=== PATIENT | male | born 1970 | race Hispanic/Latino ===

== ENCOUNTER 2018-02-03 05:14 | Emergency (ER) | payer OTHER ==
[2018-02-03] MEDS ORDERED: Lidocaine 1% 20 ML MDV ONE (05:40)
[2018-02-03] MEDS ORDERED: Adacel (T-DAP) 0.5 ML VIAL ONE (06:11)
--- NOTE | 2018-02-03 16:27 | RAD ---
LEFT HAND 3 VIEWS: Date: 02/03/18 Views were obtained with particular attention to the fingers. The carpals are largely excluded on thi s study. A soft tissue laceration is seen involving the distal part of the third finger. No opaque foreign bod y or fracture seen. IMPRESSION: Soft tissue injury. POS: HOME
== END 2018-02-03 06:39 | disposition home or self-care (01) ==
LOC: BURERS 05:14
DX: S61.313A Laceration without foreign body of left middle finger with damage to nail, initial encounter (principal); W23.0XXA Caught, crushed, jammed, or pinched between moving objects, initial encounter
CPT/HCPCS: 11760; 90715; J2001

== ENCOUNTER 2020-06-03 10:13 | Outpatient (CLI) | payer OTHER ==
--- NOTE | 2020-06-03 20:02 | RAD ---
RIGHT KNEE FOUR VIEWS: 06/03/20 Osteoarthritis is present consisting of medial joint space narrowing and osteophytes. Patellofemoral osteophytes are present as well. There is a moderate sized joint effusion. No fracture was seen. IMPRESSION: Osteoarthritis. POS: HOME
== END 2020-06-03 10:14 | disposition home or self-care (01) ==
LOC: BURRAD 10:13
PROVIDERS: ATTEND Family Medicine
DX: M25.561 Pain in right knee (principal); M19.011 Primary osteoarthritis, right shoulder